=== PATIENT | female | born 1950 | race Caucasian/White ===

== ENCOUNTER 2021-02-04 09:56 | Observation (INO) ==
--- NOTE | 2021-01-23 10:52 | ANES ---
Anesthesia Pre Procedure Eval HOME MEDICATIONS Allopurinol [Zyloprim (Allopurinol)] 100 mg PO DAILY 02/27/18 [Last Taken Unknown] Citalopram Hydrobromide [Citalopram HBr] 40 mg PO DAILY 02/27/18 [Last Taken Unknown] Furosemide [Lasix] 40 mg PO DAILY 02/27/18 [Last Taken Unknown] Levothyroxine Sodium [Levo-T] 50 mcg PO DAILY 02/27/18 [Last Taken Unknown] Simvastatin 40 mg PO DAILY 02/27/18 [Last Taken Unknown] Propranolol HCl 20 mg PO BID 07/04/19 [Last Taken Unknown] Aspirin [Aspirin EC] 81 mg PO DAILY 01/23/21 [Last Taken Unknown] Calcium Carbonate [Calcium] 500 mg PO DAILY 01/23/21 [Last Taken Unknown] Cyanocobalamin (Vitamin B-12) [Vitamin B-12] 500 mcg PO DAILY 01/23/21 [Last Taken Unknown] Ferrous Sulfate [Iron] 325 mg PO DAILY 01/23/21 [Last Taken Unknown] Multivitamin 1 ea PO DAILY 01/23/21 [Last Taken Unknown] Vitamin B Complex 1 ea PO DAILY 01/23/21 [Last Taken Unknown] Vitamin D3 2,000 dose PO DAILY 01/23/21 [Last Taken Unknown] Vitamin E 400 unit PO DAILY 01/23/21 [Last Taken Unknown] Allergies/Adverse Reactions: Allergies Allergy/AdvReac Type Severity Reaction Status Date / Time No Known Allergies Allergy Verified 01/23/21 09:26 - Planned Procedure Planned Procedure: L Arthroplasty Total Knee Medication List Reviewed:: Yes Allergies Verified: Yes Medical History (Last Reviewed 01/23/21 @ 10:47 by Faisal Busby CRNA) Thyroid disease (Acute) Diabetes mellitus (Chronic) diet controlled Hypertension (Chronic) Poison spring dermatitis (Acute) Sleep apnea with use of continuous positive airway pressure (CPAP) CPAP as needed Surgical History (Last Reviewed 01/23/21 @ 10:49 by Faisal Busby CRNA) H/O heart artery stent (Resolved) Onset Date: ~2011 H/O: hysterectomy (Resolved) H/O arthroscopic knee surgery (Resolved) Onset Date: ~1982 History of sleeve gastrectomy Family History (Last Reviewed 01/23/21 @ 10:49 by Faisal Busby CRNA) Mother Diabetes Heart disease Father Aneurysm Grandmother Uterine cancer paternal Brother Heart disease Diabetes Sister Head injury Aneurysm - Family Anesthesia History Family History:: no untoward family reactions to anesthesia, no familial bleeding tendencies, no family history of clotting disorders - Pesonal history of severe nausea with ANY narcotic. Phenergan helps but prefers using tylenol., no family history of premature - Airway/Neck/Teeth Within Normal Limits:: Yes Teeth Condition: intact Neck Exam: full range of motion Mallampatti Score: 1 Thyromental (T-M) distance: > 6 cm Mandibulo Hyoid distance: > 3 cm - Respiratory Respiratory History: sleep apnea, CPAP/BiPAP home use Respiratory Physical: lungs clear Smoking Status: Never smoker Sleep Apnea currently treated: Yes Sleep Apnea by current assessment: Yes - By history - Cardiovascular Cardiac History: CAD - Stent placed Tolerate Activity: Fair Heart Sounds: S1 & S2, Regular - Gastrointestinal NPO since: intstructed 2400 - Anesthesia Assessment and Plan ASA Class: PS, III Anesthesia Type Plan: Block - Adductor canal for post op pain relief, Spinal
[~2021-02-04 09:56] MED LIST: MORPHINE SULFATE 15 MG TABLET.SA PO PRN; ROPIVACAINE/CLONIDIN/KETOROLAC 50 ML SYRINGE IJ PRN; TRANEXAMIC ACID IN NACL,ISO-OS 1,000 MG/100 ML BAG IV PRN; ceFAZolin SODIUM 1 GM VIAL IV PRN
[2021-02-04] MEDS: RINGER'S SOLUTION,LACTATED 1,000 ML IV PRN ×2 (10:32→14:00)
[2021-02-04] MEDS ORDERED: ceFAZolin SODIUM 1 GM VIAL ONE (11:36)
[2021-02-04] MEDS ORDERED: LIDOCAINE HCL 20 ML VIAL ONE (11:39)
[2021-02-04] MEDS ORDERED: BUPIVACAINE HCL 50 ML VIAL IJ ONE (11:39)
[2021-02-04] MEDS ORDERED: PROPOFOL VIAL IV ONE (11:40)
[2021-02-04] MEDS ORDERED: ONDANSETRON HCL/PF 2 MG/ML VIAL ONE (11:40)
[2021-02-04] MEDS ORDERED: fentaNYL CITRATE/PF 50 MCG/ML AMPUL ONE (11:40)
--- NOTE | 2021-02-04 13:36 | ANES ---
Anesthesia Procedure Note Procedure Note: ANESTHESIA PROCEDURE NOTE Date of Procedure: 02/04/2021. Time of procedure: 1220. Performed by: Efren Sanchez CRNA Costumer: None. Preprocedure diagnosis: Left knee degenerative joint disease. Post procedure diagnosis: Same. Procedure: Left ultrasound guided adductor canal block for postoperative analgesia. Indications: The patient is a 70 -year-old female requesting left ultrasound- guided abductor canal nerve block for postoperative analgesia related to left total knee arthroplasty. Findings: See below. Details of the procedure: The tissue over the intended target site was cleansed with ChloraPrepand draped in a sterile fashion. 2 ml Lidocaine 1 % was infiltrated to the skin and subcutaneous tissue at the intended target site. Under sterile technique and ultrasound guidance a 20-gauge block needle was inserted through the left sartorius muscle to the saphenous nerve just anterior and medial to the superficial femoral artery and vein. 15 mL's of 0.5% bupivacaine was injected after negative aspiration for blood. Needle tip and spread of local anesthetic surrounding the saphenous nerve was observed throughout the injection with real time ultrasound visualization. The needle was then removed intact. No complications were noted. The images were retained in the Hospital medical database. EBL: Minimal. Fluids: N/A. Specimen: N/A. Post procedure condition: The patient tolerated the procedure well. No complications were noted. Thank you for this consultation. Efren Sanchez CRNA
[2021-02-04] MEDS ORDERED: MAGNESIUM HYDROXIDE 30 ML UDC PO PRN (14:14)
[2021-02-04] MEDS ORDERED: ZOLPIDEM TARTRATE 5 MG TABLET PO PRN (14:14)
[2021-02-04] MEDS ORDERED: ONDANSETRON HCL/PF 2 MG/ML VIAL IV PRN (14:14)
[2021-02-04] MEDS ORDERED: MORPHINE SULFATE 2 MG/ML DISP.SYRIN IV PRN (14:14)
[2021-02-04] MEDS ORDERED: MAG HYDROX/ALUMINUM HYD/SIMETH 30 ML UDC PO PRN (14:14)
[2021-02-04] MEDS ORDERED: RINGER'S SOLUTION,LACTATED 1,000 ML IV PRN (14:14)
[2021-02-04] MEDS ORDERED: ACETAMINOPHEN 500 MG TABLET PO PRN (14:14)
--- NOTE | 2021-02-04 14:14 | OR ---
Operative Report - Dictated Report Narrative: Date: 02/04/2021 Preoperative diagnosis: Left knee degenerative joint disease. Postoperative diagnosis: Left knee degenerative joint disease. Procedure: Left total knee arthroplasty. Surgeon: Eric Jiménez M.D. Install And Repair Technician: Mata Hong PA-C (provided and essential set of skilled, educated hands that assisted with transfer, positioning, prepping, draping, manipulation, retraction, placement of jigs, injection, insertion of implants, irrigation, closure wounds, and dressings all of which could not be performed by the available surgical crew) Anesthesia: Spinal with regional block and local periarticular joint injection. Complications: None Specimens: Bone. Estimated blood loss: Minimal. Tourniquet time: 105 minutes at 350 millimeters of mercury. Retained implants: Depuy Attune size 5 narrow left lugged cemented posterior stabilized femoral component. Size 4 fixed-bearing cemented tibial platform. 5 by 5 millimeter posterior stabilized cross-linked tibial insert. 38 millimeter medialized patella button. Indications: Mrs. Lizarraga is a 70-year-old female who has had longstanding left knee pain and arthrosis. This patient was followed in my clinic for period of time with significant complaints of left knee pain consistent with arthritic changes. She had failed conservative measures including, but not limited to, activity modification, passage of time, medications, and other conservative measures. Patient wished to proceed with surgical treatment. The risks, benefits, and alternatives were discussed in clinic. The risks of , blood clots, bleeding, infection, nerve/tendon blood vessel/ injury, malposition of components, intraoperative fracture, postoperative limited range of motion, persistent pain, failure of components, and need for additional procedures. Patient wished to proceed consent was obtained after answering all questions. Procedure: After marking the correct extremity on the floor, the patient was taken to the operating room. A timeout was performed. IV antibiotics consisting of Ancef were administered prior to the procedure. A regional followed by spinal anesthetic was induced by anesthesia, per my request, on the operative table with all bony prominences well-padded. Lombardo catheter was placed, and a bump was placed under the operative side buttock. SCDs and PEGGY hose were utilized on the nonoperative leg. A well-padded tourniquet was applied to the operative thigh. The operative leg was then pre-scrubbed with alcohol, prepped, and draped in a standard sterile fashion. After exsanguinating the extremity with an Esmarch bandage, the tourniquet was inflated. After marking out the anterior knee for standard incision centered over the patella, the skin was incised and dissected down to the joint retinaculum. The joint retinaculum was marked out as well as the horizontal axis of the patella, and a standard medial parapatellar arthrotomy was then made. The most proximal aspect of the quadriceps tendon and the patella tendon insertion were protected from release. A partial synovectomy was performed as well as a resection of the infrapatellar fat pad. The distal femoral fat pad proximal to the trochlea was also resected using cautery. The soft tissues were elevated off the medial aspect of the proximal tibia using a Oropeza elevator ensuring that we did not transect the medial collateral ligament. Upon initial evaluation range of motion was approximately 5 degrees to 110 degrees of flexion. There were signs of advanced arthrosis in the medial, lateral, and patellofemoral joint spaces. There were large marginal osteophytes which were removed with a rongeur. The knee was hyperflexed and the patella was tucked laterally. Protecting the surrounding soft tissues with Homans, an entry drill was placed down the femoral canal using Whitesides line for guidance into the entry point. The intramedullary femoral alignment debbie was utilized in order to cut the distal femur in 5 degrees of valgus resecting 10 millimeters of bone. Next the distal femur was sized to a size 5. A posterior referencing guide was utilized to place the distal femoral cutting block in 3 degrees of external rotation. This was pinned into place. The rotation was confirmed both visually and based on anatomic landmarks. The 4 in 1 cutting jig of the appropriate size was utilized in order to make all bony cuts. The jatin wing was used to ensure no notching. Retractors were utilized in order to protect surrounding soft tissues. This cut did not result in any excessive notching. We then cut the box centered over the distal femur. This allowed for resection of the anterior and posterior cruciate ligaments. I then turned my attention to the preparation of the tibia. Using an extra medullary tibial alignment debbie, 3 millimeters of bone was resected off the medial articular surface. This was made perpendicular to the mechanical axis of the joint with the alignment debbie centered over the ankle mortise. The alignment debbie was checked and was noted to be parallel to the mechanical axis, centered over the medial one third of the tibial tubercle, paralleling the anterior surface of the tibia. We then turned our attention to the remaining meniscus and soft tissues. These were removed while protecting the surrounding ligaments and soft tissues. The marginal osteophytes off the anterior, posterior, medial, lateral aspects of the femur and tibia were removed. The tibia was sized out to a size 4. Next the tibia was drilled and punched in an externally rotated position. Next the trial femur and a series of tibial inserts were utilized in order to allow for full extension and maximal flexion. It was found that a 5 millimeter insert gave the best range of motion and stability at multiple flexion points as well as at full extension there was less than 2 mm of gapping both medially and laterally. There is minimal anterior translation with the knee at 90 degrees of flexion and no signs of being able to dislocate the knee. The patella was then prepared. The initial thickness was 22 millimeters. This was reamed down to 13 millimeters parallel to the anterior surface of the patella. It was sized out to a size 38 medialized patella button. This was then drilled and trialed. Without any medial restraint the patella tracked appropriately and did not sublux or dislocate. At this point, it was felt these were the appropriate sized implants, and all trials were removed. The standard periarticular joint injection consisting of ropivacaine, Toradol, and epinephrine were injected into the periarticular joint tissues. The bony surfaces were thoroughly irrigated with a pulsatile-suction saline irrigation device. A bone plug from the prior resected anterior chamfer cut was placed into the drill hole at the distal femur. The bony surfaces were then dried in preparation for placement of the implants. The cement was vacuum mixed per the copper roller handler printing's instructions. The cement was placed on the dry bony surfaces and posterior aspect of the implants. The implants were impacted into place, removing all extruded cement. At this point anesthesia administered tranexamic acid per protocol intravenously. The knee was placed in extension with axial loading with the trial insert while the cement cured. Once the cement cured, all remaining extruded cement was removed. The knee was placed through a range of motion with the trial insert to ensure appropriate range of motion and stability. Final range of motion was approximately 0 to 110 degrees. The knee was again thoroughly irrigated with pulsatile saline lavage. The final polyethylene insert was then impacted into place ensuring no retained soft tissues. The remaining periarticular joint injection was injected. A medium Hemovac drain was placed exiting superior laterally. The knee was then placed over a triangle and the arthrotomy was closed with interrupted #1 Vicryl after thoroughly irrigating the joint. The deep and subcutaneous tissues were closed with interrupted 0 and 3-0 Vicryl respectively. Skin was closed with a running subcutaneous 3-0 Monocryl and Prineo Dermabond dressing. 4 x 4's, Sof-Rol, and a full leg Sam wrap were applied. All sponge, needle, blade, and instrument counts were correct prior to closing the wounds. Postoperative condition: The patient was awoken and transferred to the postanesthesia care unit in stable condition. Plan is to be admitted to the inpatient medical/surgical floor postoperatively for 24 hours of IV antibiotics, physical therapy, occupational therapy, and medical comanagement. Patient will be weightbearing as tolerated with range of motion as tolerated. DVT prophylaxis will be with SCDs, PEGGY hose, and pharmacological anticoagulation. Anticipated hospital stay is approximately 1-3 days.
--- NOTE | 2021-02-04 14:36 | ANES ---
Post Anesthesia Discharge - Transfer of Care Transfer of Care handoff given to nurse: Yes - Discharge from PACU Discharge from PACU when meets criteria: Yes - Awake and comfortable
[2021-02-04] MEDS: ceFAZolin SODIUM 1 GM in DEXTROSE 5 % IN WATER 100 ML IV SCH ×4 (15:37→21:18)
[2021-02-04] MEDS: oxyCODONE HCL/ACETAMINOPHEN 1 TAB TABLET PO PRN ×2 (16:51→23:10)
[2021-02-04] MEDS: PROPRANOLOL HCL 20 MG TABLET PO SCH (20:58)
[2021-02-04] MEDS: MORPHINE SULFATE 15 MG TABLET.SA PO SCH (20:59)
[2021-02-04] MEDS ORDERED: SENNOSIDES/DOCUSATE SODIUM 1 TAB TABLET PO SCH (21:00)
--- NOTE | 2021-02-04 21:05 | ANES ---
Post Anesthesia Assessment - Vital Signs Vitals: Last Vital Signs Temp 36.9 C 02/04/21 14:45 Pulse 71 02/04/21 17:38 Resp 18 02/04/21 17:38 BP 147/66 02/04/21 17:38 Pulse Ox 100 02/04/21 17:38 Airway Patency: Normal - Mental Status Level Of Consciousness: Awake, Alert, Appropriate - Pain Level Pain Score: 4 - N/V Assessment Nausea/Vomiting Presence: None Dehydration:: No
[2021-02-04] MEDS: diphenhydrAMINE HCL 50 MG/ML VIAL IV PRN (21:16)
[2021-02-05] MEDS: ceFAZolin SODIUM 1 GM in DEXTROSE 5 % IN WATER 100 ML IV SCH ×2 (03:40)
[2021-02-05] MEDS: oxyCODONE HCL/ACETAMINOPHEN 1 TAB TABLET PO PRN ×3 (04:43→12:47)
[2021-02-05] MEDS ORDERED: LEVOTHYROXINE SODIUM 50 MCG TABLET PO SCH (07:00)
[2021-02-05 07:25] LABS: Hematocrit 33.3 % (37.0-47.0); Hemoglobin 10.5 gm/dL (12.5-16.0); Mean Cell Volume 93.8 fl (78-100); Mean Corpuscular Hemoglobin 29.6 pg (27-31); Mean Corpuscular Hgb Conc 31.5 g/dl (32-36); Mean Platelet Volume 9.9 fl (8-12.5); Platelet Count 184 K/mm3 (150-450); Red Blood Count 3.55 M/mm3 (4.2-5.4); Red Cell Distribution Width 13.5 % (11.5-14.0); White Blood Count 8.5 K/mm3 (4.0-10.5)
[2021-02-05] MEDS: PROPRANOLOL HCL 20 MG TABLET PO SCH (08:45)
[2021-02-05] MEDS: MORPHINE SULFATE 15 MG TABLET.SA PO SCH (08:52)
[2021-02-05] MEDS ORDERED: FUROSEMIDE 40 MG TABLET PO SCH (09:00)
[2021-02-05] MEDS ORDERED: CHOLECALCIFEROL 1,000 UNIT CAPSULE PO SCH (09:00)
[2021-02-05] MEDS ORDERED: VITAMIN B COMP W-C 1 TAB TABLET PO SCH (09:00)
[2021-02-05] MEDS ORDERED: SIMVASTATIN 40 MG TABLET PO SCH (09:00)
[2021-02-05] MEDS ORDERED: ALLOPURINOL 100 MG TABLET PO SCH (09:00)
[2021-02-05] MEDS ORDERED: CITALOPRAM HYDROBROMIDE 20 MG TABLET PO SCH (09:00)
[2021-02-05] MEDS ORDERED: MULTIVITAMINS 1 CAP CAPSULE PO SCH (09:00)
[2021-02-05] MEDS ORDERED: FERROUS SULFATE 325 MG TABLET PO SCH (09:00)
[2021-02-05] MEDS ORDERED: CALCIUM CARBONATE 500 MG TAB.CHEW PO SCH (09:00)
[2021-02-05] MEDS ORDERED: CYANOCOBALAMIN 1,000 MCG TABLET PO SCH (09:00)
[2021-02-05] MEDS ORDERED: VITAMIN E (DL,TOCOPHERYL ACET) 400 UNITS CAPSULE PO SCH (09:00)
[2021-02-05 09:21] LABS: Anion Gap 11.5 mmol/L (6.8-13.8); BUN/Creatinine Ratio 19.6 (9.0-21.6); Calcium * 8.6 mg/dL (7.9-10.9); Carbon Dioxide 27.5 mmol/L (24-32.6); Estimated Creat Clear 42.9
[2021-02-05] MEDS: diphenhydrAMINE HCL 50 MG/ML VIAL IV PRN (10:35)
[2021-02-05] MEDS ORDERED: ENOXAPARIN SODIUM 40 MG/0.4 ML SYRG SC SCH (11:30)
--- NOTE | 2021-02-05 12:59 | PN ---
Subjective - Date and Time Seen Date: 02/05/21 Time: 10:00 Subjective Narrative: Subjective: Reports knee pain. Was able to walk in the room with therapy. Pain is well-controlled. Voiding without any complications. Tolerating by mouth intake. Denies any nausea or vomiting. Denies calf pain. Slept well. Physical exam: Alert and oriented to person, place and time Left lower extremity: Palpable dorsalis pedis pulse. Sensation grossly intact to light touch. Dressings []. Able to flex and extend ankle and toes. No excessive drainage. Calf and thigh are soft and nontender. Assessment: Postop day 1 status post left total knee arthroplasty. Plan: Due to the need for pain control, post-operative limited mobility, protection of the surgical site and joint, monitoring of the wound, and the management of chronic medical conditions, she requires continued inpatient care. Continue with physical and occupational therapy weightbearing as tolerated. Continue with anticoagulation. 24 hours postoperative prophylactic antibiotics. Pain control with goal to rely on oral medications. Continue bowel regimen. Will need 6 weeks with walker or assistive device to protect joint while ambulating during the recovery process. Discharge planning. Discontinue drain and Lombardo catheter. Objective - Vitals Vitals: Last Vital Signs Temp 36.8 C 02/05/21 10:00 Pulse 65 02/05/21 10:00 Resp 16 02/05/21 10:00 BP 140/60 02/05/21 10:00 Pulse Ox 96 02/05/21 10:00 - Abnormal Lab Findings Abnormal Lab Findings: Abnormal Lab Results 02/05/21 02/05/21 Range/Units 06:30 06:30 RBC 3.55 L (4.2-5.4) M/mm3 Hgb 10.5 L (12.5-16.0) gm/dL Hct 33.3 L (37.0-47.0) % MCHC 31.5 L (32-36) g/dl Random Glucose 203 H (70-110) mg/dL Cauti Physician Documentation - Urinary Catheter Management Urethral (Lombardo) Date of Insertion: 02/04/21 Time of Insertion: 12:45 Date of Removal: 02/05/21 Time of Removal: 04:40 Assessment/Plan - Problems/Diagnosis (1) Coronary artery disease Problem: Chronic (2) Hyperlipidemia Problem: Chronic (3) Status post left knee replacement Problem: Acute (4) Thyroid disease Problem: Chronic (5) Diabetes mellitus Problem: Chronic (6) Hypertension Problem: Chronic (7) Sleep apnea Problem: Chronic (8) Depression Problem: Chronic
--- NOTE | 2021-02-05 13:40 | DS ---
(1) Coronary artery disease Problem: Chronic (2) Hyperlipidemia Problem: Chronic (3) Status post left knee replacement Problem: Acute (4) Sleep apnea Problem: Chronic (5) Thyroid disease Problem: Chronic (6) Diabetes mellitus Problem: Chronic (7) Hypertension Problem: Chronic Date of Discharge:: 02/05/21 Hospital Course: Mrs. Lizarraga was admitted to the floor after undergoing left total knee arthroplasty. Tolerated this well. Was admitted to the floor postoperatively for 24 hours of IV antibiotics, pain control, medical comanagement, and occupational and physical therapy. OT and PT were consulted to assist with activities of daily living and ambulation. Was made weightbearing as tolerated with range of motion as tolerated. Pain was initially controlled with IV regimen. This was transitioned to oral once tolerating a by mouth intake. Was resumed on home diet and medications. Had a Lombardo catheter inserted and the operating room which was discontinued on postoperative day 1. A drain was placed intraoperatively into the knee which was discontinued on postoperative day 1. Lovenox SCD and PEGGY hose were utilized for DVT prophylaxis. Vital signs remained stable to the hospital course. Serial labs were obtained which showed a final hemoglobin of 10.5 grams. BMP was reviewed and was stable. Physical examination throughout the hospital course showed an extremity that had sensation that was intact to light touch, palpable pulses, a benign wound, motor intact to the toes, ankle, and knee. Knee range of motion was approximately 5 degrees to 60 degrees. Once an oral pain regimen was tolerated and physical therapy goals were met, it was felt that they were stable for discharge to home. Instructions: Continue with weightbearing as tolerated and range of motion as tolerated. It is OK to shower on the wound if it is not draining. If you note any drainage or for comfort you can cover with dry gauze and tape. Change every 2-3 days as needed. Continue with physical therapy. Resume home diet. Report any fever over 101.5 Fahrenheit, uncontrolled pain, increased drainage, foul odor of drainage, new or increased calf pain or shortness of breath, or any other significant complaints. A 325mg dialy aspirin will be started after finishing anticoagulation if not allergic. Continue with PEGGY hose on the operative extremity until instructed otherwise. No driving until instructed otherwise. Follow up in approximately 10-14 days. The need for [facility] with [facility] for Mrs. Lizarraga is the need for physical therapy for range of motion, strengthening as well as general ambulation. She will also need assistance with activities of daily living and dressing changes as needed. The need for home health skilled care services directly related to time spent [id number] with Mrs. Lizarraga. Procedures Performed: see notes below List Procedures: Left total knee arthroplasty Results and Findings: Lab Pending Results 02/05/21 06:30: WBC 8.5, RBC 3.55 L, Hgb 10.5 L, Hct 33.3 L, MCV 93.8, MCH 29.6, MCHC 31.5 L, RDW 13.5, Plt Count 184, MPV 9.9 02/05/21 06:30: Sodium 137, Plasma Sodium 139, Potassium 4.0, Chloride 102, Carbon Dioxide 27.5, Anion Gap 11.5, BUN 19, Creatinine 0.97, Est GFR (Non-Af Amer) 61, BUN/Creatinine Ratio 19.6, Random Glucose 203 H, Calcium 8.6 Discharge Location: Home Disposition: Home Health Service Home Health Agency: [facility] Condition: Good Discharge Activity: Activity as tolerated, Weight bearing, Other - With wheeled walker Discharge Diet: Consistent carbs, Low salt, Low fat/chol Referrals: Morgan Archer MD [Primary Care Provider] - Additional Patient Instructions (free text): [facility] new at discharge. Please call report to [phone]. Fax orders to [phone]. Follow up [facility] Orthopedic office appointment on ThursdayFebruary 26 at 10:30am. Prescriptions (Any new or edited meds): Enoxaparin Sodium [Lovenox] 40 mg SC Q24H #7 disp.syrin Transmission Status: Pending to [facility] Morphine Sulfate [Ms Contin] 15 mg PO Q12H #14 tablet.sa Transmission Status: Received by [facility] oxyCODONE HCL/ACETAMINOPHEN [Percocet 5 MG/325 MG] 2 tab PO Q4H PRN #56 tab PRN Reason: Moderate Pain (Pain Scale 4-6) Transmission Status: Received by [facility] Sennosides/Docusate Sodium [Senokot-S] 2 tab PO HS #30 tab Transmission Status: Pending to [facility] Complete Home Medications List: Complete Home Medication List: Allopurinol [Zyloprim] 100 mg PO DAILY 02/27/18 Citalopram Hydrobromide [Citalopram HBr] 40 mg PO DAILY 02/27/18 Furosemide [Lasix] 40 mg PO DAILY 02/27/18 Levothyroxine Sodium [Levo-T] 50 mcg PO DAILY 02/27/18 Simvastatin 40 mg PO QPM 02/27/18 Propranolol HCl 20 mg PO BID 07/04/19 Aspirin [Aspirin EC] 81 mg PO DAILY 01/23/21 Calcium Carbonate [Calcium] 500 mg PO DAILY 01/23/21 Cyanocobalamin (Vitamin B-12) [Vitamin B-12] 500 mcg PO DAILY 01/23/21 Ferrous Sulfate [Iron] 325 mg PO DAILY 01/23/21 Multivitamin 1 ea PO DAILY 01/23/21 Vitamin B Complex 1 ea PO DAILY 01/23/21 Vitamin D3 2,000 dose PO DAILY 01/23/21 Vitamin E 400 unit PO DAILY 01/23/21 Enoxaparin Sodium [Lovenox] 40 mg SC Q24H #7 disp.syrin 02/05/21 Morphine Sulfate [Ms Contin] 15 mg PO Q12H #14 tablet.sa 02/05/21 Sennosides/Docusate Sodium [Senokot-S] 2 tab PO HS #30 tab 02/05/21 oxyCODONE HCL/ACETAMINOPHEN [Percocet 5 MG/325 MG] 2 tab PO Q4H PRN #56 tab 02/05/21 Forms: Patient Portal Registration
[2021-02-05 14:35] VITALS: BP 138/58
== END 2021-02-05 15:20 | disposition home health service (06) ==
LOC: MS 09:56 → SUR 09:56
PROVIDERS: ADMIT Orthopaedic Surgery; ATTEND Orthopaedic Surgery